=== PATIENT | female | born 1950 | race Caucasian/White ===

== ENCOUNTER 2021-01-15 13:49 | Emergency (ER) | payer MEDICARE, OTHER | END 2021-01-15 15:20 | disposition home health service (06) | LOC: ER1 13:49 | DX: S09.90XA Unspecified injury of head, initial encounter (principal); S76.112A Strain of left quadriceps muscle, fascia and tendon, initial encounter; S90.32XA Contusion of left foot, initial encounter; W01.0XXA Fall on same level from slipping, tripping and stumbling without subsequent striking against object, initial encounter; Y92.009 Unspecified place in unspecified non-institutional (private) residence as the place of occurrence of the external cause; Z88.2 Allergy status to sulfonamides; Z88.5 Allergy status to narcotic agent | CPT/HCPCS: 73502; 73552; 73630; 99283 ==